=== PATIENT | male | born 1960 | race Caucasian/White ===

== ENCOUNTER 2019-08-13 04:33 | Observation (INO) ==
[2019-08-13] MEDS ORDERED: Naloxone 0.4 MG/ML INJ IVP PRN (08:11)
[2019-08-13] MEDS ORDERED: Acetaminophen 325 MG TABLET PO PRN (08:11)
[2019-08-13] MEDS ORDERED: Ondansetron 4 MG/2 ML VIAL IVP PRN (08:11)
[2019-08-13] MEDS ORDERED: *HR* Dextrose 50 % in Water (Syg) 50 ML SYRINGE IVP PRN (08:37)
[2019-08-13] MEDS ORDERED: Dextrose Gel 15 GM/37.5 ML TUBE PO PRN ×2 (08:37)
[2019-08-13] MEDS ORDERED: D5% in Water 1,000 ML IVC PRN (08:37)
[2019-08-13 09:10] LABS: Basophils # 0.1 K/mcL (0.0-0.2); Basophils % 0.5 %; Eosinophils # 0.1 K/mcL (0.0-0.6); Eosinophils % 0.4 %; Hematocrit 38.8 % (37.5-50.1); Hemoglobin 13.2 g/dL (12.9-16.9); Immature Granulocytes % 0.4 % (0-4); Lymphocytes # 3.5 K/mcL (0.6-4.6); Lymphocytes % 29.3 %; Mean Corpuscular Hemoglobin 31.1 pg (28.0-33.3); Mean Corpuscular Volume 91.5 fL (83.0-100.0); Mean Platelet Volume 9.1 fL (9.4-12.4); Monocytes # 0.7 K/mcL (0.0-1.3); Monocytes % 6.2 %; Neutrophils # 7.5 K/mcL (1.6-8.9); Platelet Count 238 K/mcL (140-400); Red Blood Count 4.24 M/mcL (4.19-5.50); Red Cell Distribution Width 12.5 % (11.5-14.5); Segmented Neutrophils % 63.2 %; White Blood Count 11.8 K/mcL (4.3-11.1)
[2019-08-13 09:16] LABS: INR 2.7; Prothrombin Time 31.2 Seconds (9.4-12.1)
[2019-08-13 09:29] LABS: BUN/Creatinine Ratio 17 (6-26); Blood Urea Nitrogen 10 mg/dL (6-20); Calcium 8.3 mg/dL (8.6-10.3); Carbon Dioxide 25 mEq/L (23-29); Chloride 98 mEq/L (98-107); Glucose 165 mg/dL (70-105); Magnesium 1.7 mg/dL (1.6-2.6); Osmolality,Calculated 273 (280-300); Potassium 4.5 mEq/L (3.5-5.1); Sodium 130 mEq/L (136-145); eGFR For African Americans > 60 (> 60); eGFR For Non-African Americans > 60 (> 60)
[2019-08-13] MEDS: MetroNIDAZOLE 500 MG/100 ML 500 MG/100 ML BAG IVPB SCH ×2 (11:42→17:31)
[2019-08-13] MEDS: Pantoprazole 40 MG VIAL IVP SCH (11:42)
[2019-08-13] MEDS: 0.9 % Sodium Chloride 1,000 ML IVC SCH (11:43)
[2019-08-13] MEDS: Insulin LISPRO 300 UNITS/3 ML VIAL SQ SCH ×2 (11:43→18:28)
[2019-08-13 11:51] LABS: Hematocrit 39.6 % (37.5-50.1); Hemoglobin 13.4 g/dL (12.9-16.9)
[2019-08-13] MEDS ORDERED: Piperacillin/Tazobactam 3.375 GM in 0.9 % Sodium Chloride Mini Bag 100 ML IVPB SCH (16:00)
[2019-08-13] MEDS ORDERED: *HR* Warfarin 3 MG TABLET PO ONE (18:00)
[2019-08-13] MEDS ORDERED: *HR* Warfarin 2 MG TABLET PO ONE (18:00)
[2019-08-13] MEDS ORDERED: Warfarin perPT PO PRN (18:00)
[2019-08-13 18:18] LABS: Hematocrit 34.7 % (37.5-50.1); Hemoglobin 11.8 g/dL (12.9-16.9)
[2019-08-14] MEDS: MetroNIDAZOLE 500 MG/100 ML 500 MG/100 ML BAG IVPB SCH ×3 (00:25→15:53)
[2019-08-14] MEDS: Insulin LISPRO 300 UNITS/3 ML VIAL SQ SCH ×4 (00:29→17:13)
[2019-08-14 02:08] LABS: Basophils # 0.1 K/mcL (0.0-0.2); Basophils % 0.5 %; Eosinophils # 0.1 K/mcL (0.0-0.6); Eosinophils % 0.6 %; Hemoglobin 11.3 g/dL (12.9-16.9); Immature Granulocytes % 0.9 % (0-4); Lymphocytes # 5.2 K/mcL (0.6-4.6); Lymphocytes % 40.3 %; Mean Corpuscular HGB Conc 33.2 g/dL (31.6-35.5); Mean Corpuscular Hemoglobin 30.4 pg (28.0-33.3); Mean Corpuscular Volume 91.4 fL (83.0-100.0); Mean Platelet Volume 9.5 fL (9.4-12.4); Monocytes % 8.1 %; Neutrophils # 6.4 K/mcL (1.6-8.9); Platelet Count 243 K/mcL (140-400); Red Blood Count 3.72 M/mcL (4.19-5.50); Red Cell Distribution Width 12.8 % (11.5-14.5); Segmented Neutrophils % 49.6 %; White Blood Count 12.9 K/mcL (4.3-11.1)
[2019-08-14 02:19] LABS: INR 1.7; Prothrombin Time 18.8 Seconds (9.4-12.1)
[2019-08-14 02:26] LABS: BUN/Creatinine Ratio 15 (6-26); Blood Urea Nitrogen 11 mg/dL (6-20); Calcium 8.3 mg/dL (8.6-10.3); Carbon Dioxide 27 mEq/L (23-29); Chloride 99 mEq/L (98-107); Glucose 214 mg/dL (70-105); Magnesium 1.7 mg/dL (1.6-2.6); Osmolality,Calculated 278 (280-300); Potassium 4.1 mEq/L (3.5-5.1); Sodium 131 mEq/L (136-145); eGFR For African Americans > 60 (> 60); eGFR For Non-African Americans > 60 (> 60)
[2019-08-14] MEDS: 0.9 % Sodium Chloride 1,000 ML IVC SCH ×2 (06:09→15:53)
[2019-08-14] MEDS: Pantoprazole 40 MG VIAL IVP SCH (08:01)
[2019-08-14] MEDS: *HR* Enoxaparin 120 MG/0.8 ML SYRINGE SQ SCH (17:00)
[2019-08-14] MEDS ORDERED: *HR* Warfarin 4 MG TABLET PO SCH (18:00)
[2019-08-14] MEDS: *HR* LORazepam 0.5 MG TABLET PO SCH (21:53)
[2019-08-15] MEDS: MetroNIDAZOLE 500 MG/100 ML 500 MG/100 ML BAG IVPB SCH ×4 (00:50→23:08)
[2019-08-15] MEDS: Insulin LISPRO 300 UNITS/3 ML VIAL SQ SCH ×4 (00:54→17:50)
[2019-08-15 05:03] LABS: Hematocrit 33.8 % (37.5-50.1); Hemoglobin 11.3 g/dL (12.9-16.9); Mean Corpuscular HGB Conc 33.4 g/dL (31.6-35.5); Mean Corpuscular Hemoglobin 31.3 pg (28.0-33.3); Mean Corpuscular Volume 93.6 fL (83.0-100.0); Mean Platelet Volume 8.9 fL (9.4-12.4); Platelet Count 229 K/mcL (140-400); Red Blood Count 3.61 M/mcL (4.19-5.50); Red Cell Distribution Width 12.8 % (11.5-14.5); White Blood Count 13.1 K/mcL (4.3-11.1)
[2019-08-15 05:11] LABS: INR 1.5; Prothrombin Time 16.6 Seconds (9.4-12.1)
[2019-08-15] MEDS: *HR* Enoxaparin 120 MG/0.8 ML SYRINGE SQ SCH ×2 (05:52→17:49)
[2019-08-15] MEDS: 0.9 % Sodium Chloride 1,000 ML IVC SCH ×2 (05:52→17:48)
[2019-08-15] MEDS: Pantoprazole 40 MG VIAL IVP SCH (10:17)
[2019-08-15] MEDS ORDERED: *HR* Warfarin 4 MG TABLET PO ONE (18:00)
[2019-08-15] MEDS: *HR* LORazepam 0.5 MG TABLET PO SCH (23:07)
[2019-08-16] MEDS: Insulin LISPRO 300 UNITS/3 ML VIAL SQ SCH ×4 (01:27→18:29)
[2019-08-16 03:53] LABS: Hematocrit 33.5 % (37.5-50.1); Hemoglobin 11.1 g/dL (12.9-16.9); Mean Corpuscular HGB Conc 33.1 g/dL (31.6-35.5); Mean Corpuscular Hemoglobin 31.4 pg (28.0-33.3); Mean Corpuscular Volume 94.9 fL (83.0-100.0); Mean Platelet Volume 9.5 fL (9.4-12.4); Platelet Count 244 K/mcL (140-400); Red Blood Count 3.53 M/mcL (4.19-5.50); White Blood Count 11.9 K/mcL (4.3-11.1)
[2019-08-16 04:01] LABS: INR 1.8; Prothrombin Time 20.3 Seconds (9.4-12.1)
[2019-08-16] MEDS: 0.9 % Sodium Chloride 1,000 ML IVC SCH (06:18)
[2019-08-16] MEDS: *HR* Enoxaparin 120 MG/0.8 ML SYRINGE SQ SCH ×2 (06:24→16:35)
[2019-08-16] MEDS: Pantoprazole 40 MG VIAL IVP SCH (09:38)
[2019-08-16] MEDS: MetroNIDAZOLE 500 MG/100 ML 500 MG/100 ML BAG IVPB SCH (09:38)
[2019-08-16] MEDS: metroNIDAZOLE 500 MG TABLET PO SCH ×2 (16:35→23:24)
[2019-08-16] MEDS ORDERED: BuPROPion SR (12 HR) 100 MG TABLET PO SCH (18:00)
[2019-08-16] MEDS ORDERED: *HR* Warfarin 7.5 MG TABLET PO ONE (18:00)
[2019-08-16] MEDS ORDERED: Metoprolol XL (24 HR) Succ 50 MG TAB.ER.24H PO SCH (21:00)
[2019-08-16] MEDS: *HR* LORazepam 0.5 MG TABLET PO SCH (23:24)
[2019-08-17] MEDS: Insulin LISPRO 300 UNITS/3 ML VIAL SQ SCH ×3 (06:34→13:10)
[2019-08-17] MEDS: *HR* Enoxaparin 120 MG/0.8 ML SYRINGE SQ SCH (06:35)
[2019-08-17 06:54] LABS: Hematocrit 34.6 % (37.5-50.1); Hemoglobin 11.5 g/dL (12.9-16.9); Mean Corpuscular HGB Conc 33.2 g/dL (31.6-35.5); Mean Corpuscular Hemoglobin 31.2 pg (28.0-33.3); Mean Corpuscular Volume 93.8 fL (83.0-100.0); Mean Platelet Volume 9.3 fL (9.4-12.4); Platelet Count 260 K/mcL (140-400); Red Blood Count 3.69 M/mcL (4.19-5.50); Red Cell Distribution Width 13.1 % (11.5-14.5)
[2019-08-17 07:02] LABS: INR 2.3; Prothrombin Time 26.3 Seconds (9.4-12.1)
[2019-08-17 07:17] LABS: BUN/Creatinine Ratio 14 (6-26); Blood Urea Nitrogen 10 mg/dL (6-20); Calcium 8.6 mg/dL (8.6-10.3); Carbon Dioxide 27 mEq/L (23-29); Chloride 99 mEq/L (98-107); Glucose 187 mg/dL (70-105); Osmolality,Calculated 278 (280-300); Potassium 4.1 mEq/L (3.5-5.1); Sodium 132 mEq/L (136-145); eGFR For African Americans > 60 (> 60); eGFR For Non-African Americans > 60 (> 60)
[2019-08-17] MEDS: metroNIDAZOLE 500 MG TABLET PO SCH (08:39)
[2019-08-17] MEDS ORDERED: Multivit/Ca/Min/Fe/FA 1 TAB TABLET PO SCH (09:00)
[2019-08-17] MEDS ORDERED: Metoprolol XL (24 HR) Succ 25 MG TAB.ER.24H PO SCH (09:00)
[2019-08-17 11:14] VITALS: BP 162/101
[2019-08-17] MEDS ORDERED: FLU Vac QV 19-20 (6Month+)/PF 0.5 ML SYRINGE IM ONE (12:07)
[2019-08-17] MEDS ORDERED: *HR* Warfarin 4 MG TABLET PO ONE (18:00)
== END 2019-08-17 16:24 | disposition home or self-care (01) ==
LOC: 2NENU → SUATTDRO 06:37 → 2NENU 08:26
PROVIDERS: ADMIT Pharmacist; ATTEND Internal Medicine